=== PATIENT | male | born 1985 | race Caucasian/White ===

== ENCOUNTER 2025-01-13 07:25 | Emergency (ER) | payer BC, SELFPAY ==
[2025-01-13 07:44] VITALS: BP 229/130
--- NOTE | 2025-01-13 07:55 | ED.SKININJ ---
HPI-Injury
General
Chief Complaint: Skin Surface Trauma
Source: patient
Exam Limitations: none
Time Seen by Provider: 01/13/25 07:49
History of Present Illness-Injury
Initial Injury comments:
This 40-year-old male history of hypertension presents with laceration to right leg. He stepped into a hole scraping his jovel on the edge of concrete. He noted a large laceration to the jovel. He presents here for further evaluation. Last tetanus
vaccine was unknown. He notes some pain to the anterior jovel. No other complaint
Phy Exam
Physical Exam
Physical Exam:
General: Well-appearing male no acute respiratory distress
Skin: 6 cm deep laceration anterior right jovel muscle fascia visible. No obvious damage to the muscle fascia. No significant bleeding currently. He is able to flex and extend the knee as well as dorsiflex and plantarflex the foot
Vascular: 2+ DP pulse right foot
Course
Orders/Labs/Results
Orders:
Orders
01/13/25 07:55
Tetanus/Diphth/Acelpertussis [Adacel] 0.5 ml IM .ONCE ONE
CR Leg Tibia/fibula Right 2 Vw Urgent
Comment:
Reason For Exam: laceration
Vital Signs
Initial and Last Documented VS:
Initial Vital Signs
Temp Pulse Resp BP Pulse Ox
98.0 F 70 16 229/130 96
01/13/25 07:44 01/13/25 07:44 01/13/25 07:44 01/13/25 07:44 01/13/25 07:44
Last Documented Vital Signs
Temp Pulse Resp BP Pulse Ox
98.0 F 70 16 229/130 96
01/13/25 07:44 01/13/25 07:44 01/13/25 07:44 01/13/25 07:44 01/13/25 07:57
MDM/Problems Addressed
Differential Diagnosis Includes:
Large laceration anterior right jovel. Consider underlying bony injury given the blunt trauma. X-rays pending. Tetanus vaccine updated. Patient will require wound closure.
*Pulse Oximetry
SaO2: 96
Oxygen Mode of Delivery: Room air
Patient hypoxic: no
*Critical Care Note
Total Time (30-74mins, 75-104mins- exclusive of procedures): Not Applicable
Update Note
Update Note:
I personally visualized x-rays of the right tib-fib and knees are negative for acute fracture. The wound was copiously irrigated with saline. All visible foreign bodies were removed. The wound was then anesthetized with 1% lidocaine with
epinephrine. The wound was closed in a layered fashion using 4-0 Vicryl for muscle fascia and subcutaneous tissue as well as a running suture of 4-0 Prolene. A total of 30 8 sutures were required to close the wound. Tetanus vaccine updated
dressing applied he was started on Keflex secondary to the depth and the foreign bodies. Wound care instructions were given. Stable for discharge
ED Attending Note
-
Portions of this chart may have been created with voice recognition software.� Occasional wrong word or��sound alike� substitutions may have occurred due to the inherent limitations of voice recognition software.
Discharge Plan
Departure
Patient Disposition: Home (Routine Discharge)
Date of Disposition: 01/13/25
Time of Disposition: 09:08
Patient with high blood pressure during this ER visit?: No
Discharge Problem:
Laceration
Instructions: Laceration Repair With Stitches (DC)
Prescriptions:
New
cephalexin 500 mg capsule
500 mg PO Q6H 7 Days Qty: 28 0RF
Referrals:
UNKNOWN - PT DOES,NOT KNOW [Family Provider]
Activity Restrictions/Additional Instructions:
Keep clean. Take antibiotics as directed. Have sutures removed in 2 weeks. Return if needed otherwise
Interventions
Interventions:
*Risk Screen - Suicide Last Done: 01/13/25 07:44
*General Assessment Last Done: 01/13/25 07:44
*Neglect/Abuse Screening Last Done: 01/13/25 07:44
*ED COVID-19 Vaccine History Last Done: 01/13/25 07:44
*ED Influenza Vaccine History Last Done: 01/13/25 07:44
[facility] Fall Risk Assessment Tool Last Done: 01/13/25 08:23
ED-Skin Assessment Last Done: 01/13/25 08:22
Discharge Date and Time
Print Language: SAMI
[2025-01-13] MEDS: ADACEL 0.5 ML IM (08:17)
[2025-01-13 08:21] VITALS: BMI 43.4
== END 2025-01-13 10:00 | disposition home or self-care (01) ==
LOC: EMR 07:25
PROVIDERS: EMERGENCY PHYSICIAN Emergency Medicine
DX: S81.811A Laceration without foreign body, right lower leg, initial encounter (principal); W18.42XA Slipping, tripping and stumbling without falling due to stepping into hole or opening, initial encounter; W22.8XXA Striking against or struck by other objects, initial encounter; I10 Essential (primary) hypertension; Z23 Encounter for immunization
CPT/HCPCS: 90471; 12032; 99283; 73590; 90715